=== PATIENT | female | born 2000 | race Hispanic/Latino ===

== ENCOUNTER 2020-10-17 17:44 | Day surgery (SDC) | payer OTHER ==
[2020-10-17 18:21] VITALS: BMI 29.2
[2020-10-17] MEDS ORDERED: hydrALAZINE 20 MG/ML VIAL SLOW IVP PRN (18:59)
[2020-10-17] MEDS ORDERED: Acetaminophen 500 MG TAB PO SCH (19:00)
[2020-10-17] MEDS ORDERED: hydrOXYzine 25 MG TAB PO SCH (19:15)
[2020-10-17 19:48] LABS: Amphetamine Not Detected (NotDetected); Barbiturates Screen Not Detected (NotDetected); Benzodiazepine Screen Not Detected (NotDetected); Cocaine Metabolite Screen Not Detected (NotDetected); Methadone Not Detected (NotDetected); Methamphetamine Not Detected (NotDetected); Opiate Screen Not Detected (NotDetected); Oxycodone Screen Not Detected (NotDetected); Phencyclidine (PCP) Not Detected (NotDetected); THC/Cannabinoid Screen Not Detected (NotDetected); Tricyclic Screen Not Detected (NotDetected)
[2020-10-17 19:52] LABS: ALT (SGPT) 6 U/L (8-55); AST (SGOT) 16 U/L (5-34); Albumin 3.4 g/dL (3.5-5.0); Alkaline Phosphatase 149 U/L (40-110); Anion Gap 14 mmol/L (10-20); BUN (Urea Nitrogen) 5 mg/dL (7.0-18.7); Bilirubin, Total 0.5 mg/dL (0.2-1.2); Calc. Creatinine Clearance 185 mL/min (70-130); Calcium 9.2 mg/dL (7.8-10.44); Carbon Dioxide 18 mmol/L (22-29); Chloride 109 mmol/L (98-107); Globulin 2.8 g/dL (2.4-3.5); Glucose 79 mg/dL (70-105); Potassium 3.9 mmol/L (3.5-5.1); Protein, Total 6.2 g/dL (6.0-8.3); Sodium 137 mmol/L (136-145)
== END 2020-10-17 19:45 | disposition home or self-care (01) ==
LOC: CSHLD/OP 17:44
PROVIDERS: ATTEND Family Medicine
DX: O99.891 Other specified diseases and conditions complicating pregnancy (principal); O26.893 Other specified pregnancy related conditions, third trimester; M54.5 Low back pain; L29.9 Pruritus, unspecified; Z3A.36 36 weeks gestation of pregnancy; Z79.899 Other long term (current) drug therapy
CPT/HCPCS: 36415; 80053; 80306; 82239; 87086; 99285

== ENCOUNTER 2020-10-19 23:23 | Day surgery (SDC) | payer OTHER ==
[2020-10-19 23:54] VITALS: BMI 28.3
[2020-10-20] MEDS ORDERED: hydrALAZINE 20 MG/ML VIAL SLOW IVP PRN (02:14)
[2020-10-20] MEDS ORDERED: diphenhydrAMINE 25 MG CAP PO SCH (02:15)
== END 2020-10-20 02:38 | disposition home or self-care (01) ==
LOC: CSHLD/OP 23:23
PROVIDERS: ATTEND Family Medicine
DX: O26.893 Other specified pregnancy related conditions, third trimester (principal); O99.891 Other specified diseases and conditions complicating pregnancy; O99.013 Anemia complicating pregnancy, third trimester; L29.9 Pruritus, unspecified; R10.2 Pelvic and perineal pain; M54.9 Dorsalgia, unspecified; Z3A.36 36 weeks gestation of pregnancy; Z87.59 Personal history of other complications of pregnancy, childbirth and the puerperium; Z79.899 Other long term (current) drug therapy
CPT/HCPCS: 99282

== ENCOUNTER 2021-08-07 15:04 | Emergency (ER) | payer OTHER ==
[2021-08-07 16:29] LABS: Bilirubin Neg (Negative); Blood, Urine Negative (Negative); Clarity Clear (Clear); Glucose, Urine (Dipstick) Normal (Negative); Ketone, Urine Negative (Negative); Leukocyte 25 (Negative); Nitrite Negative (Negative); Protein, Urine (Dipstick) Negative (Neg-Trace); Specific Gravity, Urine 1.015 (1.002-1.036); Urobilinogen Normal mg/dL (Less than 2)
[2021-08-07 16:37] LABS: Bacteria/HPF Rare-Few HPF (None Seen); RBC/HPF 0-3 HPF (0-3)
[2021-08-07] MEDS ORDERED: Azithromycin 250 MG TAB ONE (16:38)
[2021-08-07] MEDS ORDERED: cefTRIAXone\\ROCEPHIN 500 MG VIAL ONE (16:38)
[2021-08-07] MEDS ORDERED: Lidocaine 1% MPF 2 ML VIAL ONE (16:40)
[2021-08-07 17:00] LABS: #Monocytes 0.4 10x3/uL (0.0-1.1); #Neutrophils 6.5 10x3/uL (1.5-8.4); %Basophils 0.2 % (0.0-2.0); %Eosinophils 0.3 % (0.0-6.0); %Lymphocytes 22.5 % (18.0-47.0); %Monocytes 4.4 % (0.0-10.0); %Neutrophils 72.3 % (40.0-75.0); Hemoglobin 10.9 g/dL (12.0-15.5); Mean Corpuscular HGB CONC 32.5 g/dL (32.0-36.0); Mean Corpuscular Volume 83.1 fl (81.6-98.3); Mean Platelet Volume 10.6 fl (7.4-10.4); Platelet Count 323 10x3/uL (150-450); RBC Distribution Width 15.2 % (11.5-14.5); Red Blood Cell (RBC) Count 4.03 10x6/uL (3.90-5.03)
[2021-08-07 17:20] LABS: ALT (SGPT) Less than 6 U/L (8-55); AST (SGOT) 10 U/L (5-34); Albumin 3.9 g/dL (3.5-5.0); Alkaline Phosphatase 64 U/L (40-110); Anion Gap 17 mmol/L (10-20); BUN (Urea Nitrogen) 6 mg/dL (7.0-18.7); Bilirubin, Total 0.3 mg/dL (0.2-1.2); Calc. Creatinine Clearance 0 mL/min (70-130); Calcium 8.8 mg/dL (7.8-10.44); Carbon Dioxide 21 mmol/L (22-29); Chloride 105 mmol/L (98-107); Glucose 83 mg/dL (70-105); Potassium 3.8 mmol/L (3.5-5.1); Protein, Total 6.9 g/dL (6.0-8.3); Sodium 139 mmol/L (136-145)
[2021-08-08 16:28] LABS: Chlamydia by PCR Not Detected (NotDetected); GC by PCR DETECTED (NotDetected)
== END 2021-08-07 17:45 | disposition home or self-care (01) ==
LOC: CSHERS 15:04
DX: O98.311 Other infections with a predominantly sexual mode of transmission complicating pregnancy, first trimester (principal); Z3A.12 12 weeks gestation of pregnancy
CPT/HCPCS: 80053; 81003; 81015; 84702; 85025; 86900; 86901; 87480; 87491; 87510; 87591; 87660; 90384; 96372; 99284; J0696

== ENCOUNTER 2021-09-03 02:45 | Emergency (ER) | payer OTHER ==
[2021-09-03] MEDS ORDERED: Acetaminophen 500 MG TAB ONE (04:10)
[2021-09-03] MEDS ORDERED: Ondansetron ODT 4 MG TAB ONE (04:10)
== END 2021-09-03 04:20 | disposition home or self-care (01) ==
LOC: CSHERS 02:45
DX: H66.91 Otitis media, unspecified, right ear (principal); J06.9 Acute upper respiratory infection, unspecified; D64.9 Anemia, unspecified; Z20.822 Contact with and (suspected) exposure to COVID-19
CPT/HCPCS: 99283; Q0162; U0003; U0005

== ENCOUNTER 2021-10-23 22:24 | Day surgery (SDC) | payer OTHER ==
[2021-10-24] MEDS ORDERED: Acetaminophen 500 MG TAB PO PRN (00:16)
[2021-10-24] MEDS ORDERED: hydrALAZINE 20 MG/ML VIAL SLOW IVP PRN (00:16)
[2021-10-24] MEDS ORDERED: Promethazine HCl 25 MG/ML VIAL IM PRN (00:16)
[2021-10-24] MEDS ORDERED: Ondansetron PF 4 MG/2 ML Vial IVP PRN (00:16)
== END 2021-10-24 06:31 | disposition home or self-care (01) ==
LOC: CSHLD/OP 22:24
PROVIDERS: ATTEND Family Medicine
DX: O9A.212 Injury, poisoning and certain other consequences of external causes complicating pregnancy, second trimester (principal); S00.81XA Abrasion of other part of head, initial encounter; Z3A.23 23 weeks gestation of pregnancy; Y04.0XXA Assault by unarmed brawl or fight, initial encounter; Y92.009 Unspecified place in unspecified non-institutional (private) residence as the place of occurrence of the external cause
CPT/HCPCS: 99285

== ENCOUNTER 2021-11-18 14:10 | Outpatient (CLI) | payer OTHER | END 2021-11-18 14:11 | disposition home or self-care (01) | LOC: CSHULT 14:10 | PROVIDERS: ATTEND Family Medicine | DX: Z34.82 Encounter for supervision of other normal pregnancy, second trimester (principal); Z3A.27 27 weeks gestation of pregnancy | CPT/HCPCS: 76805 ==

== ENCOUNTER 2022-02-21 11:44 | Emergency (ER) | payer OTHER ==
[2022-02-21] MEDS ORDERED: Dexamethasone 4 MG TAB ONE (13:23)
[2022-02-21] MEDS ORDERED: Bicillin LA 1.2 MILLION UNITS/2 ML SYRINGE IM SCH (13:30)
== END 2022-02-21 14:10 | disposition home or self-care (01) ==
LOC: CSHERS 11:44
DX: J02.0 Streptococcal pharyngitis (principal)
CPT/HCPCS: 87430; 96372; 99283; J0561; J8540

== ENCOUNTER 2023-01-18 14:20 | Emergency (ER) | payer OTHER | END 2023-01-18 15:30 | disposition home or self-care (01) | LOC: CSHERS 14:20 | DX: J02.8 Acute pharyngitis due to other specified organisms (principal); F17.290 Nicotine dependence, other tobacco product, uncomplicated | CPT/HCPCS: 99282 ==

== ENCOUNTER 2023-02-24 12:14 | Emergency (ER) | payer OTHER ==
[2023-02-24] MEDS ORDERED: Lidocaine 1% w/Epinephrine 1:200K 30 ML VIAL ONE (12:31)
== END 2023-02-24 13:45 | disposition home or self-care (01) ==
LOC: CSHERS 12:14
DX: S90.851A Superficial foreign body, right foot, initial encounter (principal); F17.290 Nicotine dependence, other tobacco product, uncomplicated; W22.8XXA Striking against or struck by other objects, initial encounter
CPT/HCPCS: 28190

== ENCOUNTER 2023-03-10 11:07 | Emergency (ER) | payer MEDICAID, OTHER ==
[2023-03-10 12:17] LABS: SARS-CoV-2 NAA Rapid Test Not Detected (NotDetected)
[2023-03-10] MEDS ORDERED: Dexamethasone 10 MG/ML VIAL ONE (12:55)
== END 2023-03-10 12:48 | disposition home or self-care (01) ==
LOC: CSHERS 11:07
DX: J02.9 Acute pharyngitis, unspecified (principal); F17.290 Nicotine dependence, other tobacco product, uncomplicated
CPT/HCPCS: 87081; 87430; 99284; J1100

== ENCOUNTER 2025-01-23 09:59 | Observation (INO) | payer MEDICAID ==
[2025-01-23 10:30] VITALS: BMI 32.5
[2025-01-23] MEDS ORDERED: hydrALAZINE 20 MG/ML VIAL SLOW IVP PRN (11:07)
[2025-01-23] MEDS ORDERED: Acetaminophen 500 MG TAB PO PRN (15:24)
[2025-01-23] MEDS ORDERED: Ondansetron PF 4 MG/2 ML Vial IVP PRN (15:24)
== END 2025-01-24 09:00 | disposition home health service (06) ==
LOC: CSHLD/OP 09:59 → CSHLD 15:27 → INTOOBSV 15:27
PROVIDERS: ADMIT Family Medicine; ATTEND Family Medicine
DX: O9A.213 Injury, poisoning and certain other consequences of external causes complicating pregnancy, third trimester (principal); S39.91XA Unspecified injury of abdomen, initial encounter; Z3A.37 37 weeks gestation of pregnancy; W10.8XXA Fall (on) (from) other stairs and steps, initial encounter
CPT/HCPCS: 36415; 76819; 86850; 86870; 86900; 86901; 86922; 99285